=== PATIENT | female | born 1980 | race Caucasian/White ===

== ENCOUNTER → 2019-09-29 12:17 | Outpatient (BNVA) | payer MEDICAID, SELFPAY | PROVIDERS: Family Provider Nurse Practitioner Family; PCP Nurse Practitioner Family; Visit Provider Nurse Practitioner Family | DX: H65.03 Acute serous otitis media, bilateral (principal); M25.50 Pain in unspecified joint; K12.0 Recurrent oral aphthae; M72.2 Plantar fascial fibromatosis; J40 Bronchitis, not specified as acute or chronic | CPT/HCPCS: 80053; 85025; 85651; 86140 ==

== ENCOUNTER → 2020-03-13 16:35 | Outpatient (BNVA) | payer MEDICAID, SELFPAY | PROVIDERS: Family Provider Nurse Practitioner Family; PCP Nurse Practitioner Family; Visit Provider Nurse Practitioner Family | DX: J02.9 Acute pharyngitis, unspecified (principal); J20.9 Acute bronchitis, unspecified | CPT/HCPCS: 87071; 87880 ==

== ENCOUNTER → 2020-05-26 14:29 | Outpatient (BNVA) | payer MEDICAID, SELFPAY | PROVIDERS: Family Provider Nurse Practitioner Family; PCP Nurse Practitioner Family; Visit Provider Nurse Practitioner Family | DX: J02.9 Acute pharyngitis, unspecified (principal); J06.9 Acute upper respiratory infection, unspecified; Z11.59 Encounter for screening for other viral diseases | CPT/HCPCS: 87071; 87635; 87880 ==

== ENCOUNTER → 2021-02-15 12:02 | Outpatient (BNVA) | payer MEDICAID, SELFPAY | PROVIDERS: Family Provider Nurse Practitioner Family; PCP Nurse Practitioner Family; Visit Provider Nurse Practitioner Family | DX: R30.0 Dysuria (principal) | CPT/HCPCS: 81000; 87491; 87591; 87661 ==

== ENCOUNTER 2021-04-25 09:10 | Outpatient (CLI) | payer MEDICAID, SELFPAY ==
--- NOTE | 2021-04-25 10:00 | MM_ITS ---
WS: [id number] BILATERAL DIGITAL SCREENING MAMMOGRAM WITH CAD CLINICAL INFORMATION: Z12.39 - Encounter for other screening for malignant neop... HISTORY: Screening mammogram. No current complaints. COMPARISON: None. TECHNIQUE: Bilateral CC and MLO. FINDINGS: The breast are composed of extremely dense tissue, which can limit the detection of small underlying mass lesions. A few punctate calcifications. No suspicious focal mass, asymmetry, calcifications, or architectural distortion. No evidence of malignancy. MM/[place] [id number] IMPRESSION: BI-RADS: 2-Benign FOLLOW UP: 1 Year Follow-up Recommend return to annual screening mammography.
== END 2021-04-25 09:11 | disposition home or self-care (01) ==
LOC: RADSHAW 09:13
PROVIDERS: PCP Nurse Practitioner Family; Visit Provider Nurse Practitioner Family
DX: Z12.31 Encounter for screening mammogram for malignant neoplasm of breast (principal)
CPT/HCPCS: 77067

== ENCOUNTER 2021-12-22 07:31 | Emergency (ER) | payer MEDICAID, SELFPAY ==
[2021-12-22 07:48] VITALS: BP 103/47; PULSE 81; RESP 16; TEMP 35.9; O2SAT 98; BMI 25.7
--- NOTE | 2021-12-22 07:58 | W.ED.NAVMDI ---
HPI - Nausea/Vomiting/Diarrhea General: Chief complaint: Nausea/Vomiting/Diarrhea Stated complaint: Vomiting, chills Time Seen by Provider: 12/22/21 07:42 History of Present Illness: Patient presents with nausea vomiting diarrhea since yesterday. Child just diagnosed with influenza A last night. and another child and family have same problems. She denies any pain. Has not had any fever. Has had chills. Associated nausea: Yes Associated symtoms: Reports nausea; Denies chest pain or headache(s) Review of Systems Const: Reports: chills and body aches; Denies: fever(s) Eyes: Denies: eye discomfort ENMT: Denies: throat pain Card: Denies: chest pain Resp: Denies: dyspnea GI: Reports: nausea, vomiting and diarrhea; Denies: abdominal pain Skin/Breast: Denies: rash Neuro: Denies: headache(s) Psych: Denies: depression or suicidal ideation PFS ED PFSH: Medical History (Updated 12/22/21 @ 08:01 by LOLIS Li) Prolapse of uterus Surgical History History of lumpectomy of right breast Hx of hysterectomy Hx of oral surgery Family History Grandmother Breast cancer maternal Father Hyperlipidemia Daughter Heart disease Mother Thyroid condition Lung cancer Family/Other Lung cancer paternal side in general Social History Smoking and tobacco status: former smoker Alcohol intake: never Physical Exam Const: COMMON NORMALS: no acute distress, patient oriented x3 and alert HENMT: COMMON NORMALS: normocephalic and external ears normal HEAD & SCALP: normocephalic EXTERNAL EAR: Yes external ears normal Eye: COMMON NORMALS: EOMs intact bilaterally Neck/C-Spine: COMMON NORMALS: no JVD Resp: COMMON NORMALS: normal respiratory effort and No use of accessory muscles Cardio: COMMON NORMALS: no JVD GI: INSPECTION: Yes normal to inspection Extremity: COMMON NORMALS: normal to inspection and full ROM Neuro: COMMON NORMALS: patient oriented x3 SENSORIUM/ORIENTATION: Yes alert Psych: COMMON NORMALS: mental status grossly normal Skin: COMMON NORMALS: no rashes or lesions noted GENERAL SKIN EXAM: no rashes or lesions noted Course Vital Signs: Vital signs: Vital Signs Temperature 98.2 F 12/22/21 09:02 Pulse Rate 58 L 12/22/21 09:02 Respiratory Rate 18 12/22/21 09:02 Blood Pressure 126/71 12/22/21 09:02 Pulse Oximetry 99 12/22/21 09:02 MDM - Nausea/Vomiting/Diarrhea Medical Decision Making Stomach flu symptoms. Daughter has influenza A. Rest of family is home sick with similar things. Medication helped with nausea. Discharge Plan Discharge Patient Disposition: Home Clinical Impression: Stomach flu Condition: Stable Prescriptions: New ondansetron HCl 4 mg tablet 4 mg PO TID PRN (Reason: nausea and vomiting) 3 Days Qty: 9 0RF Discharge Orders: Discharge ED (Routine); Ordered 12/22/21 Ordered By: Rashad Rm Referrals: Mandi Geiger FNP [Primary Care Provider] - Discharge Diet: Advance as tolerated Discharge Activity: Increase activity as tolerated Patient Instructions: Influenza (ED), Gastroenteritis (ED) Activity Restrictions/Additional Instructions: Follow-up with medical provider as directed. Take medications as prescribed. Return to the ER or your medical provider if condition worsens. Please read and understand discharge instructions. If any questions ask please. Coding Level of Care Code ED Staple Laster for Chg Fwd Exam Comprehensive
[2021-12-22] MEDS: metoclopramide 10 mg Tablet 5 MG PO (08:12)
[2021-12-22 08:15] VITALS: BP 114/45; PULSE 54; RESP 20; TEMP 36.7; O2SAT 98
[2021-12-22 09:02] VITALS: BP 126/71; PULSE 58; RESP 18; TEMP 36.8; O2SAT 99
== END 2021-12-22 09:03 | disposition home or self-care (01) ==
PROVIDERS: Emergency Provider Nurse Practitioner Family; PCP Nurse Practitioner Family
DX: A08.4 Viral intestinal infection, unspecified (principal); Z87.891 Personal history of nicotine dependence
CPT/HCPCS: 99283; J8597

== ENCOUNTER → 2021-12-27 10:53 | Outpatient (BNVA) | payer MEDICAID, SELFPAY | PROVIDERS: PCP Nurse Practitioner Family; Visit Provider Nurse Practitioner Family | DX: R53.83 Other fatigue (principal); M25.50 Pain in unspecified joint; F41.9 Anxiety disorder, unspecified; R00.2 Palpitations; J32.9 Chronic sinusitis, unspecified; F32.9 Major depressive disorder, single episode, unspecified; N95.1 Menopausal and female climacteric states | CPT/HCPCS: 80053; 80061; 82306; 83516; 85025 ==

== ENCOUNTER → 2022-08-06 17:28 | Outpatient (BNVA) | payer MEDICAID, SELFPAY | PROVIDERS: PCP Nurse Practitioner Family; Visit Provider Nurse Practitioner Family | DX: M54.50 Low back pain, unspecified (principal); N73.9 Female pelvic inflammatory disease, unspecified; M54.9 Dorsalgia, unspecified | CPT/HCPCS: 87491; 87591; 87661 ==

== ENCOUNTER → 2022-10-28 16:28 | Outpatient (BNVA) | payer MEDICAID, SELFPAY | PROVIDERS: PCP Nurse Practitioner Family; Visit Provider Nurse Practitioner Family | DX: J02.9 Acute pharyngitis, unspecified (principal) | CPT/HCPCS: 87071; 87880 ==

== ENCOUNTER 2022-12-29 21:16 | Emergency (ER) | payer MEDICAID, SELFPAY ==
[2022-12-29 21:24] VITALS: BP 107/68; PULSE 63; RESP 16; TEMP 36.7; O2SAT 98; BMI 20.3
[2022-12-29] MEDS: fluorescein 1 mg Strip EYE-RIGHT (23:27)
[2022-12-29] MEDS: tetracaine 0.5% Op Soln 4 mL Btl 1 DROP EYE-RIGHT (23:27)
[2022-12-30] MEDS: HYDROcodone-acetaminophen 5-325 mg Tablet 1 TAB PO (00:06)
[2022-12-30] MEDS: ofloxacin 0.3% Op Soln 5 mL Btl 2 DROP EYE-RIGHT (00:08)
--- NOTE | 2022-12-30 00:16 | W.ED.EYEPROB ---
HPI - Eye Problem General: Chief complaint: Eye Problems Stated complaint: right eye pain/injury Time Seen by Provider: 12/29/22 23:14 Source: patient Mode of arrival: ambulatory Limitations: no limitations History of Present Illness: Patient presents to the emergency department today for evaluation treatment of injury sustained to the right eye. Patient states that she was playing with her puppy today at home when it jumped up and scratched her right eye. Patient has had pain of the right eye and difficulty with opening her eyelid since that time. Patient does wear glasses but does not wear contacts. Review of Systems General: Reports: 10 or more systems reviewed and unremarkable except in HPI and below PFSH ED PFSH: Medical History Prolapse of uterus Surgical History History of lumpectomy of right breast Hx of hysterectomy Hx of oral surgery Family History Grandmother Breast cancer maternal Father Hyperlipidemia Daughter Heart disease Mother Thyroid condition Lung cancer Family/Other Lung cancer paternal side in general Social History Smoking and tobacco status: never smoked Alcohol intake: never Substance/Drug Use: never Physical Exam Const: COMMON NORMALS: patient oriented x3 and alert; apparent distress (Patient is pleasant and social but obviously uncomfortable.) HENMT: COMMON NORMALS: normocephalic, atraumatic, hearing grossly normal bilaterally and moist oral mucous membranes HEAD & SCALP: normocephalic and atraumatic Eye: OTHER: PERRLA. EOMs intact. Patient with difficulty keeping her right eyelid open with active tearing present. No obvious signs of trauma or retained foreign material. Conjunctive a minimally injected. Neck/C-Spine: COMMON NORMALS: no JVD Lymph: LYMPHATIC: no lymphadenopathy noted Resp: COMMON NORMALS: normal respiratory effort, No retractions and No use of accessory muscles Cardio: COMMON NORMALS: no JVD, regular rate and regular rhythm RATE: regular rate RHYTHM: regular rhythm GI: COMMON NORMALS: Normal to inspection, nondistended, normoactive bowel sounds present : COMMON NORMALS: Yes no CVA tenderness BLADDER/KIDNEY EXAM: Yes no CVA tenderness Back/Pelvis: COMMON NORMALS: no CVA tenderness and thoraco-lumbar ROM normal Extremity: COMMON NORMALS: normal to inspection, full ROM and capillary refill normal Neuro: COMMON NORMALS: patient oriented x3 SENSORIUM/ORIENTATION: Yes alert Psych: COMMON NORMALS: mental status grossly normal, cooperative, normal affect and activity/motor behavior normal Course Vital Signs: Vital signs: Vital Signs Temperature 98.0 F 12/29/22 21:24 Pulse Rate 90 12/30/22 00:33 Respiratory Rate 16 12/30/22 00:33 Blood Pressure 132/73 12/30/22 00:33 Pulse Oximetry 98 12/29/22 21:24 Oxygen Delivery Me thod Room Air 12/29/22 21:24 MDM - Eye Problem Medical Decision Making Patient presents today for evaluation treatment of injury sustained to the right eye from her dog. Patient's general examination was unremarkable. Patient had severe pain with application of the tetracaine drops but, after some time was able to begin opening her eye and indicated she was noticing improvement of her pain. Jackson lamp examination with fluorescein stain indicated a moderate sized corneal abrasion to the medial right cornea. Discussed this finding with the patient. She was started on ofloxacin drops here in the emergency department and a referral to ophthalmology for follow-up of corneal abrasion was requested through case management. Patient was put into an eye patch and was given [place] for pain. Informational handout about corneal abrasions provided to the patient for her reference at home. Patient verbalized understanding and agreement to treatment plan. Differential Diagnosis Likely corneal abrasion, conjunctivitis, subconjunctival hemorrhage, corneal ulcer and ruptured globe Discharge Plan Discharge Patient Disposition: Home Clinical Impression: Corneal abrasion, right Condition: Stable Prescriptions: New ofloxacin 0.3 % drops See Rx Instructions .ROUTE .COMPLEX Qty: 10 0RF Rx Instructions: put 1-2 drps into affected eye(s) every 2-4 h x 2 days, then 1-2 drps 4 times/day days 3-7 No Action paroxetine HCl [Paxil] 20 mg tablet 20 mg PO DAILY Qty: 90 0RF ibuprofen 600 mg tablet 600 mg PO TID PRN (Reason: pain) 10 Days Qty: 30 0RF cephalexin 500 mg capsule 500 mg PO TID 10 Days Qty: 30 0RF Discharge Orders: Discharge ED (Routine); Ordered 12/29/22 Ordered By: Clarice Sterling Referrals: Mandi Geiger FNP [Primary Care Provider] - Patient Instructions: Corneal Abrasion (ED) Activity Restrictions/Additional Instructions: Your examination revealed a corneal abrasion on your right eye. As we discussed, this is an abrasion or scratch of the part of the eye that covers your iris-the colored portion of your eye. These areas can become infected and can worsen however, you did come in today for evaluation and we are starting you on antibiotics. I am also giving you some medication to help with pain. We recommend keeping the eye covered with a patch to avoid any accidental rubbing of the eye. I have also requested a follow-up appointment with ophthalmology for reevaluation in the next 24 to 48 hours. It is extremely important that you have this follow-up to make sure that the wound is improving and shows no signs of any infection. I have given you some information about corneal abrasions for your reference at home to look over. Coding Level of Care Code ED Web Content Editor for Elvira Jeong
[2022-12-30 00:33] VITALS: BP 132/73; PULSE 90; RESP 16
--- NOTE | 2022-12-30 11:00 | DCPLANNER ---
Addendum entered by Angi Subramanian 12/30/22 14:56: appraisal manager called to confirm that Dr. Lara office received patients information. appraisal manager was told that facility had received patients information. Original Note: appraisal manager was asked to refer patient to opthamology for right corneal abrasion. appraisal manager faxed patients information to Dr. Lara clinic. Patients information will be reviewed. Clinic will call patient with appointment information.
== END 2022-12-30 00:11 | disposition home or self-care (01) ==
PROVIDERS: Emergency Provider Physician Assistant; PCP Nurse Practitioner Family
DX: S05.01XA Injury of conjunctiva and corneal abrasion without foreign body, right eye, initial encounter (principal); W54.8XXA Other contact with dog, initial encounter
CPT/HCPCS: 99283

== ENCOUNTER → 2023-02-26 14:18 | Outpatient (BNVA) | payer MEDICAID, SELFPAY | PROVIDERS: PCP Nurse Practitioner Family; Visit Provider Nurse Practitioner Family | DX: R39.9 Unspecified symptoms and signs involving the genitourinary system (principal); R07.9 Chest pain, unspecified | CPT/HCPCS: 80053; 80061; 81000; 83735; 84443; 85025 ==

== ENCOUNTER 2023-03-13 06:50 | Outpatient (CLI) | payer MEDICAID, SELFPAY ==
--- NOTE | 2023-03-13 07:00 | US_ITS ---
WS: [id number] Complete ABDOMINAL ULTRASOUND HISTORY: R10.10 - Upper abdominal pain, unspecified COMPARISON: 04/11/2006 Liver: 17.1 cm in length. Normal size liver and echogenicity. No bile duct dilatation or mass. Portal Vein: Normal hepatopetal flow with monophasic waveform. Gallbladder: Normally distended gallbladder with no stones or wall thickening. CBD: 0.3 cm Pancreas: Normal size and echogenicity. Right kidney: 10.6 cm x 4.5 x 6.5 cm. Cortex:1.2 cm. Normal size and echogenicity. No hydronephrosis or mass. Possible small cyst in the lower pole RIGHT kidney. Left kidney: 9.7 cm x 5.1 cm x 4.1 cm. Cortex: 1.4 cm. Normal size and echogenicity. No hydronephrosis or mass. Spleen: Normal. Aorta and IVC: Unremarkable abdominal aorta and IVC. US/US abdomen complete* [id number] Impression: Normal complete abdomen ultrasound.
== END 2023-03-13 06:51 | disposition home or self-care (01) ==
PROVIDERS: PCP Nurse Practitioner Family; Visit Provider Nurse Practitioner Family
DX: R10.10 Upper abdominal pain, unspecified (principal)
CPT/HCPCS: 76700

== ENCOUNTER → 2023-03-19 08:47 | Outpatient (BNVA) | payer MEDICAID, SELFPAY | PROVIDERS: PCP Nurse Practitioner Family; Visit Provider Nurse Practitioner Family | DX: R19.7 Diarrhea, unspecified (principal) | CPT/HCPCS: 83630; 87338; 87506 ==

== ENCOUNTER 2023-04-22 09:34 | Outpatient (CLI) | payer MEDICAID, SELFPAY ==
--- NOTE | 2023-04-22 10:00 | NM_ITS ---
WS: [id number] NUCLEAR MEDICINE HIDA SCAN CLINICAL INFORMATION: R10.11 - Right upper quadrant pain TECHNIQUE: Following intravenous administration of 7.2 mCi of technetium 99m mebrofenin, images of th e abdomen were obtained over the course of 60 minutes. Next, gallbladder ejection fraction was determ ined by obtaining preprandial and one-hour postprandial images of the gallbladder following oral lynne stion of Ensure. COMPARISON: Ultrasound 03/13/2023 FINDINGS: Normal hepatic uptake at 5 minutes. Normal hepatic excretion. Hepatomegaly. Normal common bile duct a nd small bowel activity. Gallbladder is visualized by 30 minutes. No evidence of acute cholecystitis. Gallbladder ejection fraction 85% within normal limits. No evidence of chronic cholecystitis. IMPRESSION: 1. No evidence of acute or chronic cholecystitis. 2. Gallbladder ejection fraction 85% within normal limits.
== END 2023-04-22 09:35 | disposition home or self-care (01) ==
PROVIDERS: PCP Nurse Practitioner Family; Visit Provider Nurse Practitioner Family
DX: R10.11 Right upper quadrant pain (principal)
CPT/HCPCS: 78227; 83630; 87338; 87506; A9537

== ENCOUNTER → 2023-07-30 08:53 | Outpatient (BNVA) | payer MEDICAID, SELFPAY | PROVIDERS: PCP Nurse Practitioner Family; Visit Provider Nurse Practitioner Family | DX: R50.9 Fever, unspecified (principal) | CPT/HCPCS: 87400 ==

== ENCOUNTER → 2024-06-03 10:41 | Outpatient (BNVA) | payer MEDICAID, SELFPAY | PROVIDERS: PCP Nurse Practitioner Family; Visit Provider Nurse Practitioner Family | DX: R10.9 Unspecified abdominal pain (principal) | CPT/HCPCS: 81003 ==

== ENCOUNTER 2024-07-01 10:02 | Outpatient (CLI) | payer MEDICAID, SELFPAY ==
--- NOTE | 2024-07-01 10:04 | MM_ITS ---
WS: [id number] BILATERAL 3D TOMOSYNTHESIS DIGITAL DIAGNOSTIC MAMMOGRAPHY WITH CAD CLINICAL INFORMATION: N64.4 - Mastodynia HISTORY: Bilateral breast pain COMPARISON: 2020 TECHNIQUE: Bilateral CC, MLO, and ML views. FINDINGS: The breasts are composed of heterogeneous fibroglandular density, which can limit the detection of sm all underlying mass lesions. Bilateral subareolar ultrasound is pending in the area of pain. ULTRASOUND BREAST BILATERAL TECHNIQUE: Ultrasound bilateral breast focused area of concern. CLINICAL INFORMATION: N64.4 - Mastodynia FINDINGS: Bilateral subareolar ultrasound. No suspicious cystic or solid lesions. Incidental ductal ectasia. No suspicious findings in the area of concern. Recommend return to annual screening mammography. MM/MM diag BI tomosynthesis [id number] IMPRESSION: DENSITY: The breasts are heterogeneously dense, which may obscure small masses. BI-RADS: 2 - Benign FOLLOW UP: 1 Year Follow-up Recommend return to annual screening mammography.
== END 2024-07-01 10:03 | disposition home or self-care (01) ==
LOC: RAD 10:03
PROVIDERS: PCP Nurse Practitioner Family; Visit Provider Nurse Practitioner Family
DX: N60.41 Mammary duct ectasia of right breast (principal); N60.42 Mammary duct ectasia of left breast; R92.333 Mammographic heterogeneous density, bilateral breasts; N64.4 Mastodynia
CPT/HCPCS: 76642; 77062; G0279

== ENCOUNTER → 2025-02-18 09:04 | Outpatient (BNVA) | payer MEDICAID, SELFPAY | PROVIDERS: PCP Nurse Practitioner Family; Visit Provider Nurse Practitioner Family | DX: R39.9 Unspecified symptoms and signs involving the genitourinary system (principal); R07.9 Chest pain, unspecified | CPT/HCPCS: 80053; 81003; 82306; 82607; 83735; 84439; 84443; 85025 ==

== ENCOUNTER → 2025-06-07 10:46 | Outpatient (BNVA) | payer MEDICAID, SELFPAY | PROVIDERS: PCP Nurse Practitioner Family; Visit Provider Nurse Practitioner Women's Health | DX: R30.0 Dysuria (principal); N95.1 Menopausal and female climacteric states; R23.2 Flushing; N92.6 Irregular menstruation, unspecified | CPT/HCPCS: 80053; 82306; 82465; 82670; 82728; 83001; 83002; 83036; 83540; 83718; 83721; 84144; 84315; 84443; 85025 ==

== ENCOUNTER 2025-06-27 07:56 | Outpatient (CLI) | payer MEDICAID, SELFPAY ==
--- NOTE | 2025-06-27 08:15 | US_ITS ---
WS: [id number] US pelv w/transvag [id number] HISTORY: R10.20 - Pelvic and perineal pain unspecified side COMPARISON: 04/11/2026 Uterus: Status post hysterectomy. Uterus is not identified. No midline mass. Endometrium: Prior hysterectomy. Right ovary: 2.0 cm x 2.1 cm x 1.9 cm. Small caliber ovary. Small follicle measures 1.7 x 1.6 x 1.9 cm. Left ovary: 1.3 cm x 1.3 cm x 1.7 cm. Normal size and vascularity, no cystic or solid masses. Small follicle measures 0.7 x 0.8 x 0.8 cm. No free fluid in the pelvis. US/US pelv w/transvag [id number] IMPRESSION: 1. Status post hysterectomy. 2. Small follicles in each ovary. No cyst or solid mass identified.
== END 2025-06-27 07:57 | disposition home or self-care (01) ==
LOC: RAD 07:58
PROVIDERS: PCP Nurse Practitioner Family; Visit Provider Nurse Practitioner Women's Health
DX: R10.20 Pelvic and perineal pain unspecified side (principal); Z90.710 Acquired absence of both cervix and uterus
CPT/HCPCS: 76830; 76856